=== PATIENT | female | born 1980 | race American Indian/Alaskan Native ===

== ENCOUNTER 2017-03-02 00:35 | Emergency (ER) | payer BC ==
[2017-03-02] MEDS ORDERED: NACL 0.9% 1000 ML 1,000 ML ONE (01:25)
[2017-03-02 01:48] LABS: Eosinophils % (Auto) 1.5 % (0.0-4.3); Hematocrit 37.5 % (30.3-42.9); Hemoglobin 12.8 gm/dl (10.1-14.3); Mean Corpuscular HGB Conc 34 % (30-34); Mean Corpuscular Hemoglobin 28 pg (28-32); Mean Corpuscular Volume 82 fl (79-97); Platelet Count 251 K/mm3 (140-440); Red Blood Count 4.59 M/mm3 (3.65-5.03); Red Cell Distribution Width 14.1 % (13.2-15.2); White Blood Count 10.4 K/mm3 (4.5-11.0)
[2017-03-02 01:59] LABS: Urine Drugs of Abuse Note Disclamer
[2017-03-02 02:11] LABS: Anion Gap 19 mmol/L; Blood Urea Nitrogen 6 mg/dL (7-17); Carbon Dioxide 22 mmol/L (22-30); Chloride 102.3 mmol/L (98-107); Glucose 87 mg/dL (65-100); Potassium 3.6 mmol/L (3.6-5.0); Sodium 140 mmol/L (137-145)
[2017-03-02 02:28] LABS: RBC,Urine > 182.0 /HPF (0.0-6.0)
[2017-03-02 02:29] LABS: Mucus,Urine 1+ /HPF
--- NOTE | 2017-03-02 02:42 | Emergency Department Report ---
ED Psych HPI - General Chief Complaint: Psych Stated Complaint: POSS OD/SUICIDE ATTEMPT Time Seen by Provider: 03/02/17 01:51 Source: patient, EMS Mode of arrival: Stretcher - History of Present Illness Initial Comments: 36-year-old female here with complaint of abdominal cramping and depression. Patient was told that she is having a miscarriage today and had 2 ultrasounds that showed demise. Upon learning this the patient went home and took additional medications including Tylenol and ibuprofen. The patient has a known history of trying to harm herself in the past. She denies wanting to harm herself right now and states that she just wanted to go to sleep and felt depressed. Her mother does not feel that the patient was trying to harm herself either. MD Complaint: feels depressed -: Sudden Associated Psychiatric Symptoms: depression Quality: constant Improves With: none Worsens With: none Associated Symptoms: denies other symptoms Treatments Prior to Arrival: none - Related Data Home Medications Medication Instructions Recorded Confirmed Last Taken No Known Home Medications [No 03/02/17 03/02/17 Unknown Reported Home Medications] Allergies Allergy/AdvReac Type Severity Reaction Status Date / Time iodine Allergy Shortness Verified 03/02/17 01:09 of Breath ED Review of Systems ROS: Stated complaint: POSS OD/SUICIDE ATTEMPT Other details as noted in HPI Comment: All other systems reviewed and negative Constitutional: denies: chills, fever Eyes: denies: eye pain, eye discharge, vision change ENT: denies: ear pain, throat pain Respiratory: denies: cough, shortness of breath, wheezing Cardiovascular: denies: chest pain, palpitations Endocrine: no symptoms reported Gastrointestinal: abdominal pain. denies: nausea, diarrhea Genitourinary: denies: urgency, dysuria, discharge Musculoskeletal: denies: back pain, joint swelling, arthralgia Skin: denies: rash, lesions Neurological: denies: headache, weakness, paresthesias Psychiatric: denies: anxiety, depression Hematological/Lymphatic: denies: easy bleeding, easy bruising ED Past Medical Hx - Past Medical History Previous Medical History?: No Additional medical history: miscarriage x1, stillbirth x2 - Surgical History Past Surgical History?: No - Family History Family history: no significant - Social History Smoking Status: Never Smoker Substance Use Type: None - Medications Home Medications: Home Medications Medication Instructions Recorded Confirmed Last Taken Type No Known Home Medications [No 03/02/17 03/02/17 Unknown History Reported Home Medications] ED Physical Exam - General Limitations: No Limitations General appearance: alert, in no apparent distress - Head Head exam: Present: atraumatic, normocephalic - Eye Eye exam: Present: normal appearance - ENT ENT exam: Present: mucous membranes moist - Neck Neck exam: Present: normal inspection - Respiratory Respiratory exam: Present: normal lung sounds bilaterally. Absent: respiratory distress - Cardiovascular Cardiovascular Exam: Present: regular rate, normal rhythm. Absent: systolic murmur, diastolic murmur, rubs, gallop - GI/Abdominal GI/Abdominal exam: Present: soft, normal bowel sounds - Extremities Exam Extremities exam: Present: normal inspection - Back Exam Back exam: Present: normal inspection - Neurological Exam Neurological exam: Present: alert, oriented X3 - Psychiatric Psychiatric exam: Present: normal affect, normal mood - Skin Skin exam: Present: warm, dry, intact, normal color. Absent: rash ED Course Vital Signs 03/02/17 03/02/17 03/02/17 00:56 00:57 00:58 Temperature Pulse Rate 82 78 78 Respiratory 12 21 21 Rate Blood Pressure 103/54 103/54 Blood Pressure [Right] O2 Sat by Pulse Oximetry 03/02/17 03/02/17 03/02/17 01:00 01:02 01:04 Temperature Pulse Rate 79 88 84 Respiratory 20 25 H 23 Rate Blood Pressure 98/45 98/45 98/45 Blood Pressure [Right] O2 Sat by Pulse Oximetry 03/02/17 03/02/17 03/02/17 01:06 01:08 01:09 Temperature 98.3 F Pulse Rate 81 77 90 Respiratory 21 21 16 Rate Blood Pressure 98/45 98/45 98/45 Blood Pressure [Right] O2 Sat by Pulse 99 Oximetry 03/02/17 03/02/17 03/02/17 01:10 01:12 01:31 Temperature Pulse Rate 74 89 Respiratory 12 12 16 Rate Blood Pressure 98/45 98/45 Blood Pressure [Right] O2 Sat by Pulse 100 Oximetry 03/02/17 03/02/17 03/02/17 01:54 01:56 01:58 Temperature Pulse Rate 75 76 82 Respiratory 18 20 24 Rate Blood Pressure 106/52 106/52 106/52 Blood Pressure [Right] O2 Sat by Pulse 99 100 100 Oximetry 0803/02/17 03/02/17 02:00 02:01 02:02 Temperature Pulse Rate 81 86 76 Respiratory 22 24 20 Rate Blood Pressure 105/52 105/52 105/52 Blood Pressure [Right] O2 Sat by Pulse 99 100 100 Oximetry 03/02/17 03/02/17 03/02/17 02:04 02:06 02:08 Temperature Pulse Rate 80 78 76 Respiratory 25 H 18 20 Rate Blood Pressure 105/52 105/52 105/52 Blood Pressure [Right] O2 Sat by Pulse 98 98 98 Oximetry 03/02/17 03/02/17 03/02/17 02:10 02:12 02:14 Temperature Pulse Rate 84 86 83 Respiratory 21 21 13 Rate Blood Pressure 105/52 105/52 114/64 Blood Pressure [Right] O2 Sat by Pulse 98 100 99 Oximetry 03/02/17 03/02/17 03/02/17 02:15 02:16 02:18 Temperature Pulse Rate 91 H 94 H 87 Respiratory 12 25 H 15 Rate Blood Pressure 114/64 114/64 114/64 Blood Pressure [Right] O2 Sat by Pulse 100 99 100 Oximetry 03/02/17 03/02/17 03/02/17 02:20 02:22 02:24 Temperature Pulse Rate 92 H 86 82 Respiratory 21 13 12 Rate Blood Pressure 114/64 114/64 114/64 Blood Pressure [Right] O2 Sat by Pulse 100 100 100 Oximetry 03/02/17 03/02/17 03/02/17 02:26 02:28 02:30 Temperature Pulse Rate 83 83 85 Respiratory 22 25 H 12 Rate Blood Pressure 114/64 114/64 106/59 Blood Pressure [Right] O2 Sat by Pulse 100 100 100 Oximetry 03/02/17 03/02/17 03/02/17 02:32 02:34 02:36 Temperature Pulse Rate 85 82 85 Respiratory 23 22 14 Rate Blood Pressure 106/59 106/59 106/59 Blood Pressure [Right] O2 Sat by Pulse 100 100 100 Oximetry 03/02/17 03/02/17 03/02/17 02:38 02:40 02:42 Temperature Pulse Rate 84 87 85 Respiratory 14 17 18 Rate Blood Pressure 106/59 106/59 106/59 Blood Pressure [Right] O2 Sat by Pulse 100 100 100 Oximetry 03/02/17 03/02/17 03/02/17 02:44 02:45 02:46 Temperature Pulse Rate 90 100 H 89 Respiratory 15 15 18 Rate Blood Pressure 113/68 113/68 113/68 Blood Pressure [Right] O2 Sat by Pulse 100 100 98 Oximetry 03/02/17 03/02/17 03/02/17 02:48 02:50 02:52 Temperature Pulse Rate 93 H 82 88 Respiratory 19 13 12 Rate Blood Pressure 113/68 113/68 113/68 Blood Pressure [Right] O2 Sat by Pulse 100 100 100 Oximetry 03/02/17 03/02/17 03/02/17 02:54 02:56 02:58 Temperature Pulse Rate 94 H 82 78 Respiratory 24 23 14 Rate Blood Pressure 113/68 113/68 113/68 Blood Pressure [Right] O2 Sat by Pulse 100 100 100 Oximetry 03/02/17 03/02/17 03/02/17 03:00 03:02 03:04 Temperature Pulse Rate 79 81 81 Respiratory 12 21 21 Rate Blood Pressure 106/49 106/49 106/49 Blood Pressure [Right] O2 Sat by Pulse 100 99 99 Oximetry 03/02/17 03/02/17 03/02/17 03:06 03:08 03:10 Temperature Pulse Rate 79 76 76 Respiratory 22 20 21 Rate Blood Pressure 106/49 106/49 106/49 Blood Pressure [Right] O2 Sat by Pulse 100 98 99 Oximetry 03/02/17 03/02/17 03/02/17 03:12 03:14 03:15 Temperature Pulse Rate 79 78 77 Respiratory 20 22 20 Rate Blood Pressure 106/49 94/48 94/48 Blood Pressure [Right] O2 Sat by Pulse 98 99 99 Oximetry 03/02/17 03/02/17 03/02/17 03:16 03:18 03:20 Temperature Pulse Rate 76 80 82 Respiratory 13 19 16 Rate Blood Pressure 94/48 94/48 94/48 Blood Pressure [Right] O2 Sat by Pulse 98 99 99 Oximetry 03/02/17 03/02/17 03/02/17 03:22 03:24 04:14 Temperature Pulse Rate 79 76 76 Respiratory 19 15 16 Rate Blood Pressure 94/48 94/48 Blood Pressure 90/40 [Right] O2 Sat by Pulse 99 98 99 Oximetry ED Medical Decision Making - Lab Data Result diagrams: 03/02/17 01:29 03/02/17 01:29 Laboratory Results - last 24 hr 03/02/17 03/02/17 03/02/17 01:29 01:29 01:29 WBC RBC Hgb Hct MCV MCH MCHC RDW Plt Count Lymph % (Auto) Mills % (Auto) Eos % (Auto) Baso % (Auto) Lymph # Mills # Eos # Baso # Seg Neutrophils % Seg Neutrophils # Sodium 140 Potassium 3.6 Chloride 102.3 Carbon Dioxide 22 Anion Gap 19 BUN 6 L Creatinine 0.8 Estimated GFR > 60 BUN/Creatinine Ratio 7.50 Glucose 87 Calcium 9.0 Urine WBC (Auto) Urine RBC (Auto) U Epithel Cells (Auto) Urine Mucus Salicylates < 0.3 L Urine Opiates Screen Urine Methadone Screen Acetaminophen Ur Barbiturates Screen Ur Phencyclidine Scrn Ur Amphetamines Screen U Benzodiazepines Scrn Urine Cocaine Screen U Marijuana (THC) Screen Drugs of Abuse Note Plasma/Serum Alcohol < 0.01 03/02/17 03/02/17 03/02/17 01:29 01:29 01:50 WBC 10.4 RBC 4.59 Hgb 12.8 Hct 37.5 MCV 82 MCH 28 MCHC 34 RDW 14.1 Plt Count 251 Lymph % (Auto) 20.5 Mills % (Auto) 7.6 H Eos % (Auto) 1.5 Baso % (Auto) 1.0 Lymph # 2.1 Mills # 0.8 Eos # 0.2 Baso # 0.1 Seg Neutrophils % 69.4 Seg Neutrophils # 7.2 Sodium Potassium Chloride Carbon Dioxide Anion Gap BUN Creatinine Estimated GFR BUN/Creatinine Ratio Glucose Calcium Urine WBC (Auto) 88.0 H Urine RBC (Auto) > 182.0 U Epithel Cells (Auto) 14.0 H Urine Mucus 1+ Salicylates Urine Opiates Screen Urine Methadone Screen Acetaminophen < 15.0 Ur Barbiturates Screen Ur Phencyclidine Scrn Ur Amphetamines Screen U Benzodiazepines Scrn Urine Cocaine Screen U Marijuana (THC) Screen Drugs of Abuse Note Plasma/Serum Alcohol 03/02/17 01:50 WBC RBC Hgb Hct MCV MCH MCHC RDW Plt Count Lymph % (Auto) Mills % (Auto) Eos % (Auto) Baso % (Auto) Lymph # Mills # Eos # Baso # Seg Neutrophils % Seg Neutrophils # Sodium Potassium Chloride Carbon Dioxide Anion Gap BUN Creatinine Estimated GFR BUN/Creatinine Ratio Glucose Calcium Urine WBC (Auto) Urine RBC (Auto) U Epithel Cells (Auto) Urine Mucus Salicylates Urine Opiates Screen Presumptive negative Urine Methadone Screen Presumptive negative Acetaminophen Ur Barbiturates Screen Presumptive negative Ur Phencyclidine Scrn Presumptive negative Ur Amphetamines Screen Presumptive negative U Benzodiazepines Scrn Presumptive negative Urine Cocaine Screen Presumptive negative U Marijuana (THC) Screen Presumptive negative Drugs of Abuse Note Disclamer Plasma/Serum Alcohol - Medical Decision Making Patient is a 36-year-old female here with complaint of miscarriage and possible intentional overdose. Her labs are unremarkable at this point. I do not think that the patient was intentionally trying to harm herself although she did probably taking too much medication. Given that she has tried to harm himself before I plan to have the patient evaluated by psychiatry and will reassess. Plan is to 1013 patient until psychiatrist sees her in the morning. If psychiatry clears her she can go home which I suspect they will discharge. Portions of this chart were dictated with dictation software. There may be dictation errors contained within this note. Critical care attestation.: If time is entered above; I have spent that time in minutes in the direct care of this critically ill patient, excluding procedure time. ED Disposition Clinical Impression: Miscarriage, Medication overdose Disposition: [id number]/TX-65 PSY HOSP/PSY UNIT Is pt being admited?: No Condition: Stable Referrals: PRIMARY CARE, [Primary Care Provider] - 3-5 Days
[2017-03-02 02:54] LABS: Bilirubin,Urine NEG (Negative); Blood,Urine MOD (Negative); Ketones,Urine NEG (Negative); Leukocyte Esterase,Urine NEG (Negative); Nitrite,Urine NEG (Negative); Urobilinogen,Urine < 2.0 mg/dL (<2.0)
[2017-03-02] MEDS ORDERED: NACL 0.9% 1000 ML 1,000 ML IV ONE (03:00)
[2017-03-02] MEDS ORDERED: DIPRIVAN 10 MG/ML IV ONE ×2 (09:20→09:40)
--- NOTE | 2017-03-02 11:26 | Consultation ---
History of Present Illness - Reason for Consult Consult date: 03/02/17 Reason for consult: Mental Health Evaluation Requesting physician: CANDELARIA BROOKS - Chief Complaint Chief complaint: "I did not try to overdose" - History of Present Psychiatric Illness 36-year-old female here with complaint of abdominal cramping and depression. Patient was told that she is had a miscarriage today verified by ultrasound x 2 that showed demise. Today patient is calm, but sad during the assessment. She stated that she took 7 to 12 Ibuprofen pills after she was told that she had a miscarriage. She stated that she took the pills to get sleep, because she was experiencing an headache. This is the patient's third miscarriage. She stated being sad and angry about the miscarriage. She stated that she usually take 2 to 3 pills (Ibuprofen) a day when indicated. Per the ER note, patient has a hx of self harm. She denies ever trying to kill or harm herself in the past. She denies SI/HI's, AVH's, and depression. She denies recreational drug use and excessive alcohol consumption (etoh). Medications and Allergies Allergies Allergy/AdvReac Type Severity Reaction Status Date / Time iodine Allergy Shortness Verified 03/02/17 01:09 of Breath Home Medications Medication Instructions Recorded Confirmed Last Taken Type No Known Home Medications [No 03/02/17 03/02/17 Unknown History Reported Home Medications] Past psychiatric history - Past Medical History Past Medical History: other (miscarriage x 3) Past Surgical History: No surgical history - past Psychiatric treatment and history psychiatric treatment history: Denies a psy hx or a fam psy hx. - Social History Social history: Lives alone, other ([employer] graduate and currently a college student) Mental Status Exam - Vital signs Last Vital Signs Temp 98.3 F 03/02/17 01:09 Pulse 76 03/02/17 04:14 Resp 16 03/02/17 04:14 BP 90/40 03/02/17 04:14 Pulse Ox 99 03/02/17 04:14 - Exam Narrative exam: ROS: (+) depression MSE: Appearance: calm, cooperative Behavior: regular eye contact Speech: regular rate and tone Mood: "as well as I can be" sad Affect: labile Thought Process: circumstantial Thought Content: denies HI/SI's and AVH's Motor Activity: lying down in the bed Cognition: A/Ox 3 Insight: variable Judgment: variable Results Result Diagrams: 03/02/17 01:29 03/02/17 01:29 Abnormal lab results 03/02/17 03/02/17 03/02/17 Range/Units 01:29 01:29 01:29 Cottle % (Auto) 7.6 H (0.0-7.3) % BUN 6 L (7-17) mg/dL Urine WBC (Auto) (0.0-6.0) /HPF U Epithel Cells (Auto) (0-13.0) /HPF Salicylates < 0.3 L (2.8-20.0) mg/dL 03/02/17 Range/Units 01:50 Cottle % (Auto) (0.0-7.3) % BUN (7-17) mg/dL Urine WBC (Auto) 88.0 H (0.0-6.0) /HPF U Epithel Cells (Auto) 14.0 H (0-13.0) /HPF Salicylates (2.8-20.0) mg/dL All other labs normal. Assessment and Plan Assessment and plan: Impression: Acute Stress Reaction vs Depression. Today patient is calm, but sad during the assessment. Per ER note, possible hx of self harm. DDx: R/O Mood DO Recommendation/Plan: Continue 1013 with placement to inpatient psy services. Gather collateral information from her mother Adamaris Meza [phone].
[2017-03-02 14:32] VITALS: BP 99/60
--- NOTE | 2017-03-02 14:42 | Event Note ---
Date: 03/02/17 Evaluated patient Zhane Cox discussed with psychiatrist. Patient still is having thoughts of harming herself and is still tearful. She feels that she is worthless due to these findings patient will remain on 1013 for the weekend.
== END 2017-03-02 17:40 ==
LOC: EEVIPCON 00:35 → ED 00:35
DX: O03.9 Complete or unspecified spontaneous abortion without complication (principal); O9A.219 Injury, poisoning and certain other consequences of external causes complicating pregnancy, unspecified trimester; T39.311A Poisoning by propionic acid derivatives, accidental (unintentional), initial encounter; T39.1X1A Poisoning by 4-Aminophenol derivatives, accidental (unintentional), initial encounter; Y92.89 Other specified places as the place of occurrence of the external cause; Z3A.00 Weeks of gestation of pregnancy not specified; Z88.8 Allergy status to other drugs, medicaments and biological substances
CPT/HCPCS: 36415; 80048; 80307; 81001; 85025; 96360; 99285; G0480; J2704; J7030; 80320